=== PATIENT | male | born 1965 | race Caucasian/White ===

== ENCOUNTER 2022-05-19 10:35 | Outpatient (CLI) | payer BC, SELFPAY ==
[2022-05-19 14:35] LABS: Albumin* 4.9 g/dL (3.3-5.0); Chloride* 102 mmol/L (96-114); Sodium* 139 mmol/L (135-149)
[2022-05-19 14:36] LABS: Potassium* 5.3 mmol/L (3.6-5.1)
[2022-05-19 14:38] LABS: Alanine Aminotransferase* 63 U/L (4-50); Alkaline Phosphatase* 95 U/L (40-150); Aspartate Amino Transferase* 45 U/L (12-35); Bilirubin Total* 1.4 mg/dL (0.1-1.5); Blood Urea Nitrogen* 18 mg/dL (7-30); Calcium* 9.9 mg/dL (8.4-10.6); Carbon Dioxide* 28 mmol/L (20-32); Cholesterol* 227 mg/dL (90-199); Creatinine* 0.9 mg/dL (0.5-1.5); Estimated Glomerular Filt Rate 98 ml/min; Glucose* 110 mg/dL (60-115); Total Protein* 7.7 g/dL (6.0-8.3); Triglycerides* 261 mg/dL (40-149)
[2022-05-19 14:39] LABS: HDL Cholesterol* 44 mg/dL (>=40); LDL Cholesterol Calculated 131 mg/dL (<100)
== END 2022-05-19 10:36 | disposition home or self-care (01) ==
PROVIDERS: PCP Physician Assistant Medical; Visit Provider Physician Assistant Medical
DX: Z00.00 Encounter for general adult medical examination without abnormal findings (principal); I10 Essential (primary) hypertension; Z12.5 Encounter for screening for malignant neoplasm of prostate; Z13.29 Encounter for screening for other suspected endocrine disorder
CPT/HCPCS: 80053; 80061; 84153; 84443

== ENCOUNTER 2022-07-16 12:48 | Outpatient (CLI) | payer BC, SELFPAY | END 2022-07-16 12:49 | disposition home or self-care (01) | PROVIDERS: PCP Physician Assistant Medical; Visit Provider Internal Medicine | DX: Z12.11 Encounter for screening for malignant neoplasm of colon (principal); K57.30 Diverticulosis of large intestine without perforation or abscess without bleeding; K63.5 Polyp of colon | CPT/HCPCS: 45380; 45385; 88305; J2250; J3010 ==